=== PATIENT | female | born 1970 ===

== ENCOUNTER 2017-02-23 10:45 | Emergency (ER) | payer BC ==
[2017-02-23 11:16] VITALS: BP 126/75
--- NOTE | 2017-02-23 14:00 | UC ---
Eye Complaint HPI - HPI Summary HPI Summary: ONE WEEK OF WORSENING LEFT UPPER EYELID SWELLING REDNESS - History of Current Complaint Chief Complaint: UCEye Stated Complaint: EYE ISSUE Hx Obtained From: Patient Hx Last Menstrual Period: 02/20/17 Onset/Duration: Gradual Onset, Lasting Weeks, Still Present Severity Initially: Mild Severity Currently: Moderate Pain Intensity: 2 Pain Scale Used: 0-10 Numeric Location of Injury: Eye Lid (upper) Character: Dull Aggravating Factor(s): Nothing Alleviating Factor(s): Nothing Associated Signs And Symptoms: Positive: Negative - Allergies/Home Medications Allergies/Adverse Reactions: Allergies Allergy/AdvReac Type Severity Reaction Status Date / Time Beeswax Allergy Swelling Verified 02/23/17 11:10 Chamomile Allergy Swelling Verified 02/23/17 11:10 Home Medications: Home Medications Multiple Vitamin [Multi Vitamin] 1 tab PO DAILY 02/23/17 [History Confirmed ] PMH/Surg Hx/FS Hx/Imm Hx Previously Healthy: Yes - Surgical History Surgical History: Yes Surgery Procedure, Year, and Place: TUBAL. UTERINE. COSMETIC - Family History Known Family History: Positive: Diabetes - UNCLE - Social History Occupation: Employed Full-time Lives: With Family Alcohol Use: Rare Substance Use Type: None Smoking Status (MU): Never Smoked Tobacco Review of Systems Constitutional: Negative Skin: Negative Eyes: Other - LEFT SUPERIOR EYELID ERRETHEMA, EDEMA ENT: Negative Respiratory: Negative Cardiovascular: Negative Gastrointestinal: Negative Genitourinary: Negative Motor: Negative Neurovascular: Negative Musculoskeletal: Negative Neurological: Negative Psychological: Negative All Other Systems Reviewed And Are Negative: Yes Physical Exam Triage Information Reviewed: Yes Appearance: Well-Appearing, No Pain Distress, Well-Nourished Vital Signs: Initial Vital Signs Temp 98.5 F 02/23/17 11:11 Pulse 66 02/23/17 11:11 Resp 16 02/23/17 11:11 BP 126/75 02/23/17 11:11 Pulse Ox 100 02/23/17 11:11 Vital Signs Reviewed: Yes Eyes: Positive: Conjunctiva Clear, Conjunctiva Inflamed, Other: - ;LEFT SUPERIOR EYELID EDEMA ERYTHEMA ENT Exam: Normal ENT: Positive: Normal ENT inspection, Hearing grossly normal, Pharynx normal, TMs normal Dental Exam: Normal Neck exam: Normal Neck: Positive: Supple, Nontender, No Lymphadenopathy Respiratory Exam: Normal Respiratory: Positive: Chest non-tender, Lungs clear, Normal breath sounds, No respiratory distress Cardiovascular Exam: Normal Cardiovascular: Positive: RRR, No Murmur Abdominal Exam: Normal Musculoskeletal Exam: Normal Musculoskeletal: Positive: Strength Intact, ROM Intact, No Edema Neurological Exam: Normal Psychological Exam: Normal Skin Exam: Normal Eye Complaint Course/Dx - Differential Dx/Diagnosis Differential Diagnosis/HQI/PQRI: Periorbital Cellulitis, Orbital Cellulitis Provider Diagnoses: LEFT SUPERIOR BLEPHARITIS Discharge - Discharge Plan Condition: Stable Disposition: HOME Prescriptions: Amoxicillin/Clavulanate TAB* [Augmentin TAB 875*] 875 mg PO BID #14 tab Erythromycin OPHTH.OINT* [Ilotycin OPHTH.OINT*] 1 applic LEFT EYE BID #1 ophth.oint Patient Education Materials: Blepharitis (ED) Referrals: [facility] [place] [facility]FERRAL [Outside] No Primary Care Phys,NOPCP [Primary Care Provider] - Chris Drummond MD [Medical Doctor] -
== END 2017-02-23 13:02 | disposition home or self-care (01) ==
LOC: UCEAST 10:45
DX: H01.004 Unspecified blepharitis left upper eyelid (principal)
CPT/HCPCS: 99212; G0463